=== PATIENT | male | born 1975 | race Caucasian/White ===

== ENCOUNTER 2017-11-19 13:37 | Emergency (ER) | payer SELFPAY ==
[~2017-11-19] VITALS: Ht 182.9 cm; Wt 75.0 kg
[2017-11-19 13:49] VITALS: BP 146/83; PULSE 100; RESP 20; TEMP 98.3; O2SAT 100
--- NOTE | 2017-11-19 15:13 | PD ---
HPI Chief Complaint: Skin Problem Time Seen by Provider: 15:09 Travel History International Travel<30 days: No Contact w/Intl Traveler<30days: No Traveled to known affect area: No History of Present Illness HPI 42-year-old homeless male presents emergency department status post sunburn to both lower extremities several days ago. Patient now has pain, erythema, swelling and some superficial wounds to the right lower leg and foot. Pain is about an 8 out of 10. Erythema extends to the mid juarez. Swelling is of the left foot and lower juarez. Patient has had chills but denies significant fever. Patient feels dehydrated. He is also hungry. He states no other constitutional symptoms. He has no known drug allergies. [facility] Social History Alcohol Use: Yes Tobacco Use: Yes Substance Use: Yes Allergies-Medications (Allergen,Severity, Reaction): Coded Allergies: No Known Allergies (Verified Allergy, Unknown, 11/19/17) Reported Meds & Prescriptions Reported Meds & Active Scripts Active Tramadol (Tramadol HCl) 50 Mg Tab 50 Mg PO Q6H PRN Ibuprofen 800 Mg Tab 800 Mg PO Q8H PRN Review of Systems Except as stated in HPI: all other systems reviewed are Neg General / Constitutional: Positive: Chills, No: Fever Eyes: No: Visual changes HENT: No: Headaches Cardiovascular: No: Chest Pain or Discomfort Respiratory: No: Shortness of Breath Gastrointestinal: No: Abdominal Pain Genitourinary: No: Dysuria Musculoskeletal: Positive: Myalgias, Edema, Pain (See history of present illness.) Skin: Positive Lesions (See history of present illness per), No Rash Neurologic: No: Weakness Psychiatric: No: Depression Endocrine: No: Polydipsia Hematologic/Lymphatic: No: Easy Bruising Physical Exam Narrative GENERAL: Patient appears in no obvious distress. SKIN: Warm and dry. Patient has normal color report turgor. Right lower extremity shows obvious healing sunburn damage with superficial wounds to the dorsal foot and anterior lower juarez. The foot itself is erythematous and swollen with induration, but no obvious signs of abscess. Lower extremity has nonpitting indurated edema to about mid juarez. No streaking noted. The left lower extremity has healing sunburn without cellulitis per HEAD: Atraumatic. Normocephalic. EYES: Pupils equal and round. No scleral icterus. No injection or drainage. ENT: No nasal bleeding or discharge. Mucous membranes pink and moist. Pharynx is clear. Airways patent. NECK: Trachea midline. Supple and nontender CARDIOVASCULAR: Regular rate and rhythm. No murmurs gallops or rubs. RESPIRATORY: No accessory muscle use. Clear to auscultation. Breath sounds equal bilaterally. GASTROINTESTINAL: Abdomen soft, non-tender, nondistended. Hepatic and splenic margins not palpable. MUSCULOSKELETAL: Extremities without clubbing, cyanosis, or edema. No obvious deformities. See skin. NEUROLOGICAL: Awake and alert. No obvious cranial nerve deficits. Motor grossly within normal limits. Five out of 5 muscle strength in the arms and legs. Normal speech. PSYCHIATRIC: Appropriate mood and affect; insight and judgment normal. Data Data Last Documented VS Vital Signs Date Time Temp Pulse Resp B/P (MAP) Pulse Ox O2 Delivery O2 Flow Rate FiO2 11/19/17 15:30 100 Room Air 11/19/17 15:23 98.8 93 16 Orders Orders Complete Blood Count With Diff (11/19/17 15:) Comprehensive Metabolic Panel (11/19/17 15:) Lactic Acid (11/19/17 15:27) Prothrombin Time / Inr (Pt) (11/19/17 15:27) Act Partial Throm Time (Ptt) (11/19/17 15:27) Urinalysis - C+S If Indicated (11/19/17 15:) Iv Access Insert/Monitor (11/19/17 15:27) Ecg Monitoring (11/19/17 15:27) Oximetry (11/19/17 15:27) Morphine Inj (Morphine Inj) (11/19/17 15:30) Ondansetron Inj (Zofran Inj) (11/19/17 15:30) Sodium Chlor 0.9% 1000 Ml Inj (Ns 1000 M (11/19/17 15:27) Sodium Chloride 0.9% Flush (Ns Flush) (11/19/17 15:30) Electrocardiogram (11/19/17 15:27) Ketorolac Inj (Toradol Inj) (11/19/17 15:30) Cefazolin 2 Gm Premix (Ancef 2 Gm Premix (11/19/17 15:30) Clindamycin 600 Mg/Ns Premix (Cleocin 60 (11/19/17 15:30) Blood Culture (11/19/17 16:27) Consult Infectious Disease (11/19/17 ) Case Management Consult (11/19/17 ) Asp:No Reaction To Dalbav/Vanc (Asp Crit (11/19/17 17:00) Asp: Does Not Meet Inpt Admit (Asp Crit: (11/19/17 17:00) Asp: Iv Antibiotics Admit Only (Asp Crit (11/19/17 17:00) Asp: Location Of Dalbav Admin (Asp Crit: (11/19/17 17:00) [facility] ([facility] (11/19/17 17:00) Dalbavancin Inj (Dalvance Inj) (11/19/17 16:52) Dalbavancin Inj (Dalvance Inj) (11/19/17 17:01) (Hub Use Only)Inp Phy Cons/Ref (11/19/17 ) Labs Laboratory Tests Test 11/19/17 15:30 White Blood Count 11.6 TH/MM3 Red Blood Count 4.27 MIL/MM3 Hemoglobin 13.4 GM/DL Hematocrit 38.9 % Mean Corpuscular Volume 91.2 FL Mean Corpuscular Hemoglobin 31.4 PG Mean Corpuscular Hemoglobin Concent 34.5 % Red Cell Distribution Width 13.7 % Platelet Count 366 TH/MM3 Mean Platelet Volume 7.6 FL Neutrophils (%) (Auto) 72.9 % Lymphocytes (%) (Auto) 14.5 % Monocytes (%) (Auto) 10.8 % Eosinophils (%) (Auto) 1.2 % Basophils (%) (Auto) 0.6 % Neutrophils # (Auto) 8.5 TH/MM3 Lymphocytes # (Auto) 1.7 TH/MM3 Monocytes # (Auto) 1.3 TH/MM3 Eosinophils # (Auto) 0.1 TH/MM3 Basophils # (Auto) 0.1 TH/MM3 CBC Comment DIFF FINAL Differential Comment Prothrombin Time 9.9 SEC Prothromb Time International Ratio 1.0 RATIO Activated Partial Thromboplast Time 25.7 SEC Blood Urea Nitrogen 9 MG/DL Creatinine 0.87 MG/DL Random Glucose 110 MG/DL Total Protein 7.2 GM/DL Albumin 3.1 GM/DL Calcium Level 8.8 MG/DL Alkaline Phosphatase 153 U/L Aspartate Amino Transf (AST/SGOT) 270 U/L Alanine Aminotransferase (ALT/SGPT) 396 U/L Total Bilirubin 0.4 MG/DL Sodium Level 130 MEQ/L Potassium Level 3.9 MEQ/L Chloride Level 95 MEQ/L Carbon Dioxide Level 25.5 MEQ/L Anion Gap 10 MEQ/L Estimat Glomerular Filtration Rate 97 ML/MIN Lactic Acid Level 1.3 mmol/L MDM Medical Decision Making Medical Screen Exam Complete: Yes Emergency Medical Condition: Yes Differential Diagnosis Homeless. Right lower extremity cellulitis. Possible sepsis. Sunburn. Narrative Course Patient appears medically stable at time of exam. Labs ordered including CBC, CMP, lactic acid, blood cultures 2, Patient is given Ancef 2 g IV. Patient is given 2 mg morphine IV as well as 4 mg Zofran IV, as well as 30 mg ketorolac IV. CBC shows leukocytosis of 11.6. There are no bands. Coagulation studies are normal. Chemistries significant for sodium 130, chloride 95. Lactic acid is normal at 1.3. LFTs are elevated at 270, and 396 consecutively. Alk phos is 153. Albumin is 3.1 Patient was given 2 L normal saline bolus. It is decided the patient is stable for discharged with dose Dalvance. Patient given Ibuprofen 800mg 3 times daily with food #30. Patient is given tramadol 50 mg 1 every 6 hours as needed pain #12. Patient should avoid further sun exposure, and keep the right leg elevated as much as possible. Patient should return if symptoms worsen as needed. Patient is referred to [facility]. Diagnosis Primary Impression: Cellulitis of left lower extremity Patient Instructions: Cellulitis (ED), Dalbavancin (By injection), General Instructions Additional Instructions: Patient is given Ancef 2 g IV. Patient is given 2 mg morphine IV as well as 4 mg Zofran IV, as well as 30 mg ketorolac IV. CBC shows leukocytosis of 11.6. There are no bands. Coagulation studies are normal. Chemistries significant for sodium 130, chloride 95. Lactic acid is normal at 1.3. LFTs are elevated at 270, and 396 consecutively. Alk phos is 153. Albumin is 3.1 Patient was given 2 L normal saline bolus. It is decided the patient is stable for discharged with dose Dalvance. Patient given Ibuprofen 800mg 3 times daily with food #30. Patient is given tramadol 50 mg 1 every 6 hours as needed pain #12. Patient should avoid further sun exposure, and keep the right leg elevated as much as possible. Patient should return if symptoms worsen as needed. Patient is referred to [facility]. Med/Other Pt SpecificInfo: Prescription(s) given, Wound Care Scripts Tramadol (Tramadol) 50 Mg Tab 50 MG PO Q6H Y for PAIN, #12 TAB 0 Refills Prov: Marlon Yap MD 11/19/17 Ibuprofen (Ibuprofen) 800 Mg Tab 800 MG PO Q8H Y for Pain/Inflammation, #30 TAB 0 Refills Prov: Marlon Yap MD 11/19/17 Disposition: 01 DISCHARGE HOME Condition: Stable Angus Cha Nov 19, 2017 15:12
[2017-11-19 15:23] VITALS: BP 165/88; PULSE 93; RESP 16; TEMP 98.8; O2SAT 100
[2017-11-19] MEDS ORDERED: SODIUM CHLOR 0.9% 1000 ML INJ 1,000 ML IV SCH (15:27)
[2017-11-19 15:30] VITALS: O2SAT 100
[2017-11-19] MEDS ORDERED: MORPHINE SULFATE 4 MG/ML INJ IV PUSH ONE (15:30)
[2017-11-19] MEDS ORDERED: KETOROLAC TROMETHAMINE 30 MG/ML (IVP) VIAL IVP ONE (15:30)
[2017-11-19] MEDS ORDERED: ceFAZolin 2 GM PREMIX 50 ML IV ONE (15:30)
[2017-11-19] MEDS ORDERED: ONDANSETRON HCL 4 MG/2 ML VIAL IVP ONE (15:30)
[2017-11-19] MEDS ORDERED: SODIUM CHLORIDE 0.9% FLUSH 10 ML FLUSH IV FLUSH PRN (15:30)
[2017-11-19] MEDS ORDERED: CLINDAMYCIN 600 MG/NS PREMIX 50 ML IV ONE (15:30)
[2017-11-19 16:09] LABS: AUTOMATED NEUTROPHIL # 8.5 TH/MM3 (1.8-7.7); BASOPHIL # 0.1 TH/MM3 (0-0.2); BASOPHIL % 0.6 % (0.0-2.0); EOSINOPHIL # 0.1 TH/MM3 (0-0.4); EOSINOPHIL % 1.2 % (0.0-4.0); HEMATOCRIT 38.9 % (39.0-51.0); HEMOGLOBIN 13.4 GM/DL (13.0-17.0); LYMPH % 14.5 % (9.0-44.0); LYMPHOCYTE # 1.7 TH/MM3 (1.0-4.8); MEAN CELL VOLUME 91.2 FL (80.0-100.0); MEAN CORPUSCULAR HEMOGLOBIN 31.4 PG (27.0-34.0); MEAN CORPUSCULAR HGB CONC 34.5 % (32.0-36.0); MEAN PLATELET VOLUME 7.6 FL (7.0-11.0); MONO % 10.8 % (0.0-8.0); MONOCYTE # 1.3 TH/MM3 (0-0.9); NEUT % 72.9 % (16.0-70.0); PLATELET COUNT 366 TH/MM3 (150-450); RED BLOOD COUNT 4.27 MIL/MM3 (4.50-5.90); RED CELL DISTRIBUTION WIDTH 13.7 % (11.6-17.2); WHITE BLOOD COUNT 11.6 TH/MM3 (4.0-11.0)
[2017-11-19 16:19] LABS: PROTHROMBIN TIME - PATIENT 9.9 SEC (9.8-11.6)
[2017-11-19 16:25] LABS: ALBUMIN 3.1 GM/DL (3.4-5.0); AST (GOT) 270 U/L (15-37); BICARBONATE 25.5 MEQ/L (21.0-32.0); BLOOD UREA NITROGEN 9 MG/DL (7-18); CALCIUM 8.8 MG/DL (8.5-10.1); CHLORIDE 95 MEQ/L (98-107); CREATININE 0.87 MG/DL (0.60-1.30); GLOMERULAR FILTRATION RATE 97 ML/MIN (>89); GLUCOSE,RANDOM 110 MG/DL (74-106); SODIUM (NA) 130 MEQ/L (136-145)
[2017-11-19 16:26] LABS: ALT (GPT) 396 U/L (12-78)
[2017-11-19 16:28] LABS: ALKALINE PHOSPHATASE 153 U/L (45-117); TOTAL BILIRUBIN ADULT 0.4 MG/DL (0.2-1.0); TOTAL PROTEIN 7.2 GM/DL (6.4-8.2)
[2017-11-19] MEDS ORDERED: DALBAVANCIN INJ 1,125 MG in DEXTROSE 5% IN WATER INJ 250 ML IV STA ×2 (16:52)
[2017-11-19] MEDS ORDERED: ASP: Location of Dalbavancin administration OTHER ONE (17:00)
[2017-11-19] MEDS ORDERED: ASP: Only reason for admit - IV antibiotics OTHER ONE (17:00)
[2017-11-19] MEDS ORDERED: MISCELLANEOUS PHARMACY INFORMATION XX ONE (17:00)
[2017-11-19] MEDS ORDERED: ASP: No known hypersensitivity to Vanco, Telavancin, Dalbavancin OTHER ONE (17:00)
[2017-11-19] MEDS ORDERED: ASP: Does not meet inpatient admission criteria OTHER ONE (17:00)
[2017-11-19] MEDS ORDERED: DALBAVANCIN INJ 1,500 MG in DEXTROSE 5% IN WATE 500 ML INJ 500 ML IV STA ×2 (17:01)
[2017-11-19] MEDS ORDERED: IBUP1TAB7 PO (17:27)
[2017-11-19] MEDS ORDERED: TRAM50TA PO (17:27)
[2017-11-19] MEDS ORDERED: DIATRIZOATE MEGLUM/DIATRIZOATE SOD 9 ML CUP PO ONE (18:00)
[2017-11-19 18:15] LABS: BILIRUBIN, URINE NEG (NEG); BLOOD, URINE NEG (NEG); GLUCOSE,URINE NEG (NEG); KETONE, URINE NEG (NEG); NITRITE,URINE NEG (NEG); PH, URINE 6.5 (5.0-8.5); URINE COLOR LIGHT-YELLOW (YELLW/STRAW); URINE LEUKOCYTE ESTERASE NEG (NEG)
--- NOTE | 2017-11-20 09:43 | EKG ---
Date Performed: 11/19/2017 Time Performed: 16:02:51 PTAGE: 42 years EKG: Sinus rhythm NORMAL ECG NO PREVIOUS TRACING DOCTOR: Victoriano Geronimo Interpretating Date/Time 11/20/2017 09:41:45
== END 2017-11-19 19:50 | disposition home or self-care (01) ==
LOC: NEPD 13:37
DX: L03.116 Cellulitis of left lower limb (principal); Z72.0 Tobacco use
CPT/HCPCS: 80053; 81001; 83605; 85025; 85610; 85730; 87040; 93005; 96365; 96366; 96375; 99284; J0690; J0875; J1885; J2270; J2405; J7030; J7060